=== PATIENT | male | born 1995 | race Caucasian/White ===

== ENCOUNTER 2020-02-11 23:11 | Emergency (ER) | payer OTHER ==
[~2020-02-11] VITALS: Ht 160 cm; Wt 62.7 kg
[2020-02-11 23:14] VITALS: Ht 160 cm; Wt 62.7 kg
[2020-02-12 00:30] VITALS: BP 118/75
== END 2020-02-12 00:31 | disposition home or self-care (01) ==
LOC: D.ER 23:11
DX: H57.11 Ocular pain, right eye (principal)